=== PATIENT | female | born 1950 | race Caucasian/White ===

== ENCOUNTER 2021-10-03 09:13 | Emergency (ER) | payer MEDICARE, SELFPAY ==
--- NOTE | ~2021-10-03 | CT_ITS ---
EXAMINATION: CT CERVICAL SPINE WITHOUT CONTRAST CLINICAL INFORMATION: Neck pain status post trauma. COMPARISON: None TECHNIQUE: Multiple axial images of the cervical spine were obtained without the administration of intravenous contrast. Coronal and sagittal reformatted images were obtained. This CT examination was performed using dose optimization techniques as appropriate, variously including the following: *Automated exposure control *Adjustment of mA and/or kV according to patient size (this includes techniques or standardized protocols for targeted exams where dose is matched to indication/reason for exam; i.e. extremities or head) *Use of iterative reconstruction technique DLP: 446 mGy-cm FINDINGS: There is straightening of the normal cervical lordosis with normal spinal alignment. Mild degenerative disc disease is seen at C5-C6 and mild to moderate degenerative disc disease is seen at C6-C7 with mild disc space narrowing and marginal osteophyte formation. Mild to moderate multilevel bilateral facet arthropathy is seen. The spinous processes are intact. The odontoid process is intact with mild to moderate articular degenerative changes and apical ligament calcification. The cervical soft tissues are unremarkable. There is no lymphadenopathy. The thyroid gland is unremarkable. The lung apices are clear. CT/CT cervical spine wo con IMPRESSION: 1. Straightening of the normal cervical lordosis may be secondary to positioning and/or muscle spasm. 2. Mild to moderate multilevel degenerative changes as detailed above. No acute abnormality.
--- NOTE | ~2021-10-03 | XR_ITS ---
EXAMINATION: 1. RADIOGRAPHS RIGHT HAND 2. RADIOGRAPHS LEFT HAND CLINICAL INFORMATION: Bilateral hand pain after fall COMPARISON: None TECHNIQUE: 3 views of each hand were obtained FINDINGS: Right hand: Diffuse osteopenia. Visualized portion of the distal radius and ulna demonstrate no fracture. Carpal rows are maintained. No carpal bone fracture. Mild degenerative changes of the first carpal metacarpal joint. There are mild to moderate degenerative changes of scattered IP joints. No metacarpal or phalangeal fracture. Mild soft tissue swelling abutting the second DIP joint. No radiopaque foreign body. Left hand: Diffuse osteopenia. Visualized portions of the distal radius and ulna demonstrate no fracture. Carpal rows are well-maintained. Mild to moderate degenerative changes of the first carpal metacarpal joint. Mild to moderate degenerative changes of scattered IP joints. Minimal erosive changes are suspected to related to the second and third DIP joints. No focal soft tissue swelling. No radiopaque foreign body. XR/XR hand LT min 3V IMPRESSION: Scattered mild to moderate degenerative changes of both hands. No fracture.
--- NOTE | ~2021-10-03 | XR_ITS ---
EXAMINATION: 1. RADIOGRAPHS RIGHT HAND 2. RADIOGRAPHS LEFT HAND CLINICAL INFORMATION: Bilateral hand pain after fall COMPARISON: None TECHNIQUE: 3 views of each hand were obtained FINDINGS: Right hand: Diffuse osteopenia. Visualized portion of the distal radius and ulna demonstrate no fracture. Carpal rows are maintained. No carpal bone fracture. Mild degenerative changes of the first carpal metacarpal joint. There are mild to moderate degenerative changes of scattered IP joints. No metacarpal or phalangeal fracture. Mild soft tissue swelling abutting the second DIP joint. No radiopaque foreign body. Left hand: Diffuse osteopenia. Visualized portions of the distal radius and ulna demonstrate no fracture. Carpal rows are well-maintained. Mild to moderate degenerative changes of the first carpal metacarpal joint. Mild to moderate degenerative changes of scattered IP joints. Minimal erosive changes are suspected to related to the second and third DIP joints. No focal soft tissue swelling. No radiopaque foreign body. XR/XR hand RT min 3V IMPRESSION: Scattered mild to moderate degenerative changes of both hands. No fracture.
--- NOTE | ~2021-10-03 | CT_ITS ---
EXAMINATION: CT HEAD WITHOUT CONTRAST CLINICAL INFORMATION: Head trauma, rule out intracranial abnormality. COMPARISON: None TECHNIQUE: Contiguous axial imaging was performed from the skull base to vertex without intravenous administration of contrast. Coronal and sagittal reformatted images were obtained. This CT examination was performed using dose optimization techniques as appropriate, variously including the following: *Automated exposure control *Adjustment of mA and/or kV according to patient size (this includes techniques or standardized protocols for targeted exams where dose is matched to indication/reason for exam; i.e. extremities or head) *Use of iterative reconstruction technique DLP: 770.51 mGy-cm FINDINGS: The cortical sulci are normal. The lateral ventricles are symmetrical. The third and fourth ventricles are in their normal midline position. The basilar and prepontine cisterns are unremarkable. There is no acute intra or extracerebral abnormality. There is no mass effect or midline shift. Small right frontal extracranial hematoma is noted. Sections through the bony calvarium are unremarkable. The paranasal sinuses are clear. The bony orbits and orbital contents are unremarkable. CT/CT head/brain wo con IMPRESSION: 1. No acute intracranial pathology. 2. Small right frontal soft tissue hematoma. No acute underlying abnormality. Correlate with physical exam.
--- NOTE | ~2021-10-03 | XR_ITS ---
EXAMINATION: XR KNEE, RIGHT CLINICAL INFORMATION: Right knee pain status post fall. COMPARISON: None TECHNIQUE: Four views of the right knee. FINDINGS: [id number] tricompartmental degenerative joint changes are seen most pronounced in the medial femoral-tibial and patellofemoral joint spaces. There is no acute fracture or dislocation. No significant joint effusion is seen. The soft tissues are unremarkable. XR/XR knee RT 4V IMPRESSION: Eqlk-hv-[id number] tricompartmental degenerative joint changes most consistent with osteoarthritis. No overt acute abnormality.
[2021-10-03 09:35] VITALS: BP 162/91; PULSE 81; RESP 16; TEMP 36.2; O2SAT 97; BMI 31.8
[2021-10-03] MEDS: Acetaminophen 325 MG TABLET 650 MG PO (09:56)
[2021-10-03] MEDS: Ondansetron ODT 4 MG TAB.RAPDIS TRANSLINGU (09:57)
--- NOTE | 2021-10-03 09:59 | PC.NURSE ---
Patient fell on her way to [employer] on cement surface-patient denies dizziness prior to fall. Pt repors pain in b/l hands, knees, and headache-there is a raised lump about 11 cm in diameter noted to p's right forehead-pt denies dizziness/nausea, no focal deficits-ice applied to pt's forehead.
--- NOTE | 2021-10-03 10:00 | ED_ITS ---
HPI - Fall General Chief Complaint: Fall Stated Complaint: Fall/Head inj Time Seen by Provider: 10/03/21 09:46 Source: patient Mode of arrival: ambulatory Limitations: no limitations History of Present Illness MD complaint: fall Onset (ago): minute(s) (just [employer]CH[employer]IC) Fall from: standing Fall witnessed: yes, by bystander Place fall occurred: other (holiness steps) Loss of consciousness: none Prolonged down time: no Symptoms prior to fall: none Context: tripped/slipped Location of injury: head Location of injury - extremities: right: hand (both hands) and knee Severity: moderate Quality: aching Associated symptoms (after fall): headache and other (hematoma on forehead does not take blood thinners) Related Data Previous Rx's Medication Instructions Recorded ondansetron 4 mg disintegrating 4 mg PO Q8H PRN #20 tab 10/03/21 tablet Allergies Allergy/AdvReac Type Severity Reaction Status Date / Time erythromycin base Allergy Mild Gastrointestinal Verified 10/03/21 09:54 Upset Penicillins Allergy Angioedema Verified 10/03/21 09:54 Review of Systems Review of Systems: Constitutional : No Fever, No Chills ENT/Mouth : No Ear Pain, No Hoarseness, No sore throat Eyes: No Eye Pain, No Swelling, No Redness, No Foreign Body Cardiovascular : No Chest Pain, No SOB Respiratory : No Cough, No Dyspnea Gastrointestinal : No Nausea, No Vomiting, No Diarrhea, No abdominal Pain Genitourinary : No Dysuria, No Hematuria Musculoskeletal : positive joint pain, No Myalgias, No Joint Swelling Skin : No Skin lacerations, No rash, pos hematoma, pos abrasions Neuro : No Weakness, No Numbness, No Loss of Consciousness, No Dizziness, pos Headache Psych : No Anxiety/Panic, No Depression Heme/Lymph: no easy bruising, no Lymphadenopathy Endocrine : No Polyuria, No Polydipsia All other systems reviewed and are negative [facility] Past Medical History Attestation statement: The following information was validated with the patient. Medical History Asthma Hypertension Hypothyroid Social History Social History (Updated 10/03/21 @ 10:39 by Pam De La Paz DO) Patient Tobacco Use Status: Never used Tobacco Advance Directives: Yes Advance Directives Information Provided: No Advance Directives on File: No Physical Exam Vital Signs: Vital Signs: Last Vital Signs Temp 98.3 F 10/03/21 11:12 Pulse 77 10/03/21 11:12 Resp 18 10/03/21 11:12 BP 161/76 H 10/03/21 11:12 Pulse Ox 97 10/03/21 11:12 BMI result Body Mass Index 31.8 Appearance: Alert. Oriented X3. No acute distress. Eyes: Pupils equal, round and reactive to light. ENT: Pharynx normal. Large hematoma to R forehead no pan sign no periorbital hematoma Neck: Normal inspection. Neck supple. CVS: Normal heart rate and rhythm. Pulses normal. Respiratory: No respiratory distress. Breath sounds normal. Abdomen: Soft and non-tender. Skin: Skin warm and dry. Normal skin color. Normal skin turgor. Extremities: No lower extremity edema. Contusion to R patella distal NV intact, bruising and superficial abrasions to both palms, NV intact Neuro: Oriented X 3. No motor deficit. No sensory deficit. Course Course Course Narrative: GCS 15 - negative CT scans of head and neck stable for DC MDM - Fall MDM Narrative Medical decision making narrative: 71 yo female with hx of asthma not on DOAC here after mechanical fall on holiness steps has large hematoma on forehead as well as hand and knee pain will obtain imaging of CT head/cspine and hand/knee xrays. PO tylenol/zofran - dispo per results and findings. GCS 15. Discharge Plan Discharge Clinical Impression: Facial hematoma Qualifiers: Encounter type: initial encounter Qualified Code(s): S00.83XA - Contusion of other part of head, initial encounter Closed head injury Qualifiers: Encounter type: initial encounter Qualified Code(s): S09.90XA - Unspecified injury of head, initial encounter Patient Disposition: Home, Self-Care Instructions: Head Injury (ED), Abrasion (ED), Facial Contusion (ED) Additional Instructions: return to ED for any worsening symptoms or concerns ice hematoma, tylenol CT scans negative for fracture or acute brain trauma Prescriptions: New ondansetron 4 mg tablet,disintegrating 4 mg PO Q8H PRN (Reason: nausea and vomiting) Qty: 20 0RF Stand Alone Forms: Work/School Release
[2021-10-03 11:12] VITALS: BP 161/76; PULSE 77; RESP 18; TEMP 36.8; O2SAT 97
[2021-10-03 14:28] VITALS: BP 132/62; PULSE 63; RESP 16; TEMP 36.1; O2SAT 95
== END 2021-10-04 06:45 | disposition home or self-care (01) ==
PROVIDERS: Emergency Provider Emergency Medicine
DX: S00.83XA Contusion of other part of head, initial encounter (principal); M79.642 Pain in left hand; M79.641 Pain in right hand; M25.561 Pain in right knee; I10 Essential (primary) hypertension; J45.909 Unspecified asthma, uncomplicated; W10.9XXA Fall (on) (from) unspecified stairs and steps, initial encounter; Y93.9 Activity, unspecified; Y92.22 Religious institution as the place of occurrence of the external cause; Y99.9 Unspecified external cause status
CPT/HCPCS: 70450; 72125; 73130; 73564; 99284; 99285

== ENCOUNTER 2023-02-27 15:13 | Outpatient (REF) | payer MEDICARE, OTHER, SELFPAY | END 2023-02-27 15:14 | disposition home or self-care (01) | LOC: HO.SH 15:13 | PROVIDERS: Visit Provider Nurse Practitioner Family | DX: H90.3 Sensorineural hearing loss, bilateral (principal) | CPT/HCPCS: 92557 ==

== ENCOUNTER 2023-02-27 16:29 | Outpatient (REF) | payer SELFPAY ==
--- NOTE | 2023-02-28 13:53 | MHC.AU.MED ---
Medical Clearance for Hearing Instrumentation Date: 02/27/23 Patient Name: Alyse Muñiz Date of : 1950 Primary Care Provider: Kaley Galicia NP We have seen your patient on 02/27/23 and have determined that they are a candidate for amplification (See accompanying report). Specifically, they would benefit from: Hearing aid use in both ears There is a statute that addresses Medical Evaluation Requirements prior to fitting a patient with a hearing aid. According to [place] statute 265 CMR:6.03(1), (a) General. Except as provided in 265 CMR 6.03(1)(b), a fast food server shall not sell a hearing aid unless the prospective user has presented to the fast food server a written statement signed by a licensed physician that states that the patient's hearing loss has been medically evaluated and the patient may be considered a candidate for a hearing aid. The medical evaluation must have taken place within the preceding six months. Please note: Due to the [place] Statute referenced above, we cannot accept a signature other than that of a licensed physician. PSYCHIATRIST and PA signatures cannot be accepted. I am in agreement with the above recommendation. There is no medical contraindication for hearing instrumentation. Physician Signature Date Physician Name (Printed)
--- NOTE | 2023-02-28 14:32 | MHC.AU.HA1 ---
Hearing Aid Evaluation Date of Visit: 02/27/23 Historical Information: Description of Hearing: Mild sloping to moderately-severe sensorineural hearing loss, bilaterally. Summary: Alyse is ready to pursue hearing aids due to her continued difficulty hearing and understanding both at home and at work. She is hoping hearing aids will help ease some of her communication difficulties and make it easier to participate in conversations. She is agreeable to trying a RITE style hearing aid with a dome. She opted for a rechargeable hearing aid that is compatible with her Android cell phone. Hearing Aid Prescription: Based on the individual?s shared listening needs, communication environments, dexterity, desire for connectivity, and personal preferences, the following prescription for amplification has been made: Right ear: Make, Model, Color: Phonak Audeo L70-RT Color: Sand Beige Battery Size: Rechargeable Bearing Ring Assembler/Slim Tube: 1M Type of Earmold/Dome/CShell/SlimTip: Small open dome Left ear: Left ear prescription to be same as Right Hearing Aid above: Make, Model, Color: Phonak Audeo L70-RT Color: Sand Beige Battery Size: Rechargeable Bearing Ring Assembler/Slim Tube: 1M Type of Earmold/Dome/CShell/SlimTip: Small open dome Plan of Care: Patient wishes to purchase hearing aids as prescribed Action Taken/Action Needed: Medical Clearance to be requested from PCP/ENT. Hearing Instrument Fitting to be scheduled when materials arrive Primary Diagnosis: H90.3 Bilateral Sensorineural Hearing Loss Signature: Provider: Juanita Lazaro, [facility]
== END 2023-02-27 16:30 | disposition home or self-care (01) ==
LOC: HO.HAP 16:29
PROVIDERS: Visit Provider Internal Medicine
DX: Z46.1 Encounter for fitting and adjustment of hearing aid (principal); H90.3 Sensorineural hearing loss, bilateral
CPT/HCPCS: 92591

== ENCOUNTER 2023-06-11 12:52 | Outpatient (REF) | payer SELFPAY ==
--- NOTE | 2023-06-11 14:07 | MHC.AU.HA2 ---
Hearing Instrument Fitting- Adult- Binaural Date of Visit: 06/11/23 Hearing Instruments Dispensed: Right Ear: Make, Model, Color, Serial Number: Deo Josepho L70-RT SN: [id number] Color: Sand Beige Adjunct Writing Instructor Repair Warranty: 05/28/2026 Adjunct Writing Instructor Loss and Damage Warranty: 05/28/2026 [facility] Service Plan: OPTED OUT Battery Size: Rechargeable Catshovel Driver/Slim Tube: 1M Earmold/Dome/CShell/SlimTip: Large open dome Type of Wax Guard: CeruShield Left Ear: Make, Model, Color, Serial Number: Deo Josepho L70-RT Sn: [id number] Color: Sand Beige Adjunct Writing Instructor Repair Warranty: 05/28/2026 Adjunct Writing Instructor Loss and Damage Warranty: 05/28/2026 [facility] Service Plan: OPTED OUT Battery Size: Rechargeable Catshovel Driver/Slim Tube: 1M Earmold/Dome/CShell/SlimTip: Large open dome Type of Wax Guard: CeruShield Accessories/Assistive Technology: Phonak Slip Presser Ease SN: [id number] Summary of Fitting: Ran feedback analyzer and real ear measures. Decreased overall volume due to perceived loudness. Discussed care, use, and rechargeability including manually turning on/off, volume control use, and changing domes and wax guards. Also provided brush to clean microphones. Practiced insertion and removal. Alyse was able to manipulate the hearing aids easily. The domes tended to work their way out of her ears so the aeronautical engineering teacher was no longer flush with her head, likely due to shape of ear canal. Switching to large open dome helped slightly. Discussed option of adding retention tail. Alyse will try as is for now and will readdress at follow up. Explained importance of daily, consistent use and acclimatization period. Briefly discussed bluetooth option but did not pair to cell phone at this time per Alyse's preference. Will help pair at follow up if Alyse is interested. Recommendations: A hearing instrument follow-up was scheduled. Diagnosis Code(s): Primary Diagnosis: H90.3 Bilateral Sensorineural Hearing Loss Signature: Provider: Juanita Lazaro, [facility]
== END 2023-06-11 12:53 | disposition home or self-care (01) ==
LOC: HO.HAP 12:52
PROVIDERS: Visit Provider Nurse Practitioner Family
DX: Z46.1 Encounter for fitting and adjustment of hearing aid (principal); H90.3 Sensorineural hearing loss, bilateral
CPT/HCPCS: 92700; V5261; V5299

== ENCOUNTER 2023-07-11 13:30 | Outpatient (REF) | payer SELFPAY ==
--- NOTE | 2023-07-11 14:46 | MHC.AU.HA3 ---
Hearing Instrument Follow-Up- Binaural Date of Visit: 07/11/23 Right Ear: Daniele, Model, Color, Serial Number: Deo Barahona L70-RT SN: [id number] Color: Sand Beige Roll Coverer Repair Warranty: 05/28/2026 Roll Coverer Loss and Damage Warranty: 05/28/2026 [facility] Service Plan: OPTED OUT Battery Size: Rechargeable Damage Adjuster/Slim Tube: 1M Earmold/Dome/CShell/SlimTip:Large open dome with retention tail Type of Wax Guard: CeruShield Dispensed By: [facility] Date of Fittin06/11/2023 Left Ear: Daniele, Model, Color, Serial Number: Deo Barahona L70-RT SN: [id number] Color: Sand Beige Roll Coverer Repair Warranty: 05/28/2026 Roll Coverer Loss and Damage Warranty: 05/28/2026 [facility] Service Plan: OPTED OUT Battery Size: Rechargeable Damage Adjuster/Slim Tube: 1M Earmold/Dome/CShell/SlimTip: Large open dome with retention tail Type of Wax Guard: CeruShield Dispensed By: [facility] Date of Fittin06/11/2023 Follow-Up Summary: Alyse reported overall she is noticing an improvement in speech clarity. However, she still has difficulty hearing, particularly in background noise. At a meeting, she could not hear/understand the speaker due to the overwhelming amount of background noise. Similarly, at dinner, she can hear the television that is on better than her adult sons sitting at the table with her. Decreased compression ratios and increased noise management settings in hvdtnq-uv-jcinh and uixqqbk-gx-tkqxu programs. Data logging shows about 9.5 hours of use per day. Alyse also reported the domes still tend to work their way out of her ears. Added a retention tail and practiced insertion with noted improvement in security of fit. Recommendations: An additional follow-up was scheduled to monitor progress. Diagnosis Code(s): Primary Diagnosis: H90.3 Bilateral Sensorineural Hearing Loss Signature: Provider: Juanita Lazaro, [facility]
== END 2023-07-11 13:31 | disposition home or self-care (01) ==
LOC: HO.HAP 13:30
PROVIDERS: Visit Provider Nurse Practitioner Family
DX: Z13.89 Encounter for screening for other disorder (principal)